=== PATIENT | male | born 1975 | race Two or more races ===

== ENCOUNTER 2018-01-15 10:27 | Outpatient (CLI) | payer OTHER | END 2018-01-15 10:37 | disposition home or self-care (01) | LOC: RAD 10:27 | DX: M25.512 Pain in left shoulder (principal); M25.561 Pain in right knee ==

== ENCOUNTER 2018-01-30 10:55 | Outpatient (CLI) | payer OTHER | END 2018-01-30 17:00 | disposition home or self-care (01) | LOC: SONOGRAMA 10:55 | DX: M25.512 Pain in left shoulder (principal) ==

== ENCOUNTER → 2019-08-18 | Emergency (ER) | payer OTHER ==
[~2019-08-18] VITALS: Ht 182.9 cm; Wt 108.9 kg
[~2019-08-18] MED LIST: CIPRO500 MG PO; ENALAPRIL MALEA10 MG; INTESTINEX680 M1 PO; LEVSIN/SL0.125 MG SL
== END | disposition home or self-care (01) ==
LOC: ER 20:56
DX: K52.9 Noninfective gastroenteritis and colitis, unspecified (principal)